=== PATIENT | male | born 1940 | race Caucasian/White ===

== ENCOUNTER → 2016-10-14 | Outpatient (CLI) | payer OTHER ==
--- NOTE | 2016-10-14 12:09 | Diagnostic Imaging Report ---
PROCEDURE: MRI lumbar spine. TECHNIQUE: Multiplanar, multisequence MRI of the lumbar spine was performed without contrast. INDICATION: Back pain. FINDINGS: The alignment of the lumbar spine is normal. The vertebral body heights are well maintained. There is no spondylolysis or spondylolisthesis. No fractures are identified. The conus medullaris is seen at L1 and is normal in appearance. 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 The T12-L1 disc is unremarkable. At L1-L2, there is slight loss of disc height and signal intensity and some minimal annular bulging. At L2-L3, there is loss of disc height and signal intensity. There is broad-based annular bulging, facet disease, and thickening of the ligamentum flavum. This results in moderate central spinal stenosis and moderate bilateral neuroforaminal encroachment. At L3-L4, there is broad-based annular bulging, facet disease, and thickening of the ligamentum flavum. There is severe central spinal stenosis with [id number] bilateral neuroforaminal encroachment. At L4-L5, there is broad-based annular bulging and facet disease. There is effacement of the ventral thecal sac resulting in moderate central spinal stenosis. There is also bilateral neuroforaminal encroachment. The L5-S1 disc is grossly unremarkable. There is facet disease at this level. 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 There are no other focal soft tissue abnormalities apart from a sebaceous cyst in the subcutaneous tissues of the mid back. 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 Dictated by: Dictated on workstation # [id number]
== END ==
LOC: RAD 10:47
PROVIDERS: ATTEND Orthopaedic Surgery Orthopaedic Surgery of the Spine
DX: M54.16 Radiculopathy, lumbar region (principal)
CPT/HCPCS: 72148